=== PATIENT | male | born 1980 | race Caucasian/White ===

== ENCOUNTER 2017-06-27 18:24 | Emergency (ER) | payer OTHER ==
[2017-06-27] MEDS: IPRATRPIUM/ALBUTEROL 0.5/2.5MG 3 ML NEBU. NEB (19:23)
[2017-06-27] MEDS: predniSONE 10 MG TABLET PO (19:47)
== END 2017-06-27 20:18 | disposition home or self-care (01) ==
LOC: ER 18:24
DX: J20.9 Acute bronchitis, unspecified (principal); F17.200 Nicotine dependence, unspecified, uncomplicated; F12.10 Cannabis abuse, uncomplicated; Z88.8 Allergy status to other drugs, medicaments and biological substances
CPT/HCPCS: 71046; 94640; 99284-25; J7512; J7620

== ENCOUNTER 2017-07-18 04:48 | Emergency (ER) | payer OTHER ==
[2017-07-18] MEDS: MAALOX:LIDO:APAP 6:2:1 ORAL SUSPENSION 180 ML BOTTLE. PO (05:15)
[2017-07-18] MEDS: FAMOTIDINE 20 MG TABLET. PO (05:15)
== END 2017-07-18 05:37 | disposition home or self-care (01) ==
LOC: ER 04:48
DX: R10.12 Left upper quadrant pain (principal); F12.10 Cannabis abuse, uncomplicated
CPT/HCPCS: 99283